=== PATIENT | male | born 1945 | race Caucasian/White ===

== ENCOUNTER 2020-09-04 11:03 | Day surgery (SDC) | payer MEDICARE ==
[~2020-09-04] VITALS: Ht 190.5 cm; Wt 114.7 kg
[~2020-09-04 11:03] MED LIST: ASPI-1 PO; DULO-31 PO; HYDR-3965 PO; HYDR-4383 PO; LISI-600 PO; SULF1TAB49 PO; ZOLP5TAB8 PO
[2020-09-04 11:30] VITALS: BP 159/82
[2020-09-04] MEDS ORDERED: DULO30CA52 PO (11:49)
[2020-09-04] MEDS ORDERED: ESZO3TAB44 PO (11:49)
[2020-09-04] MEDS ORDERED: LACT1CAP65 PO (11:49)
[2020-09-04] MEDS ORDERED: CALC-627 PO (11:49)
[2020-09-04] MEDS ORDERED: midazolam 2 mg/2 ml injection ONE (12:42)
[2020-09-04] MEDS ORDERED: fentaNYL/PF 50MCG/1 ML 2ML syringe ONE (12:42)
[2020-09-04 13:20] VITALS: BP 139/74
[2020-09-04 13:30] VITALS: BP 144/71
[2020-09-04 13:45] VITALS: BP 143/70
[2020-09-04 14:00] VITALS: BP 145/72
== END 2020-09-04 14:15 | disposition home or self-care (01) ==
LOC: SSTAY O 11:03
PROVIDERS: ATTEND Radiology Vascular & Interventional Radiology
DX: M25.462 Effusion, left knee (principal); M25.562 Pain in left knee; I10 Essential (primary) hypertension; Z79.82 Long term (current) use of aspirin; Z79.899 Other long term (current) drug therapy
CPT/HCPCS: 10160; 36415; 76942; 87635; J2250; J3010; 99152; 99153